=== PATIENT | male | born 1975 | race Caucasian/White ===

== ENCOUNTER 2019-01-13 20:17 | Outpatient (REF) | payer MEDICAID, SELFPAY ==
[2019-01-13 19:25] LABS: Anion Gap 10.5 mmol/L (3-11); BUN 8 mg/dL (7-18); CO2 27.5 mmol/L (21.0-32.0); CREATININE 0.88 mg/dL (0.70-1.30); Calcium 9.6 mg/dL (8.5-10.1); Calculated LDL 162 mg/dL; Chloride 101 mmol/L (98-107); Cholesterol 257 mg/dL (50-200); Glucose 97 mg/dL (70-100); HDL Cholesterol 77 mg/dL (40-60); Potassium 4.8 mmol/L (3.5-5.1); Sodium 139 mmol/L (136-145); Triglyceride 92 mg/dL (30-150)
== END 2019-01-13 20:37 ==
LOC: NCHCN 20:17
PROVIDERS: Visit Provider Nurse Practitioner Family
DX: I10 Essential (primary) hypertension (principal); Z00.00 Encounter for general adult medical examination without abnormal findings
CPT/HCPCS: 80048; 80061

== ENCOUNTER 2019-05-23 01:31 | Outpatient (CLI) | payer OTHER, MEDICAID, SELFPAY ==
--- NOTE | 2019-05-23 | DI.RAD_ITS ---
EXAM: XR CERVICAL SP NAPIER TRAUMA 2-3V INDICATION: PHOTO ID VERIFIED, SPINAL CORD LESIONS, SEVERAL SEVERE CONCUSSIONS. COMPARISON: No exams were available for comparison TECHNIQUE: 2D digital imaging was performed. FINDINGS: There is been previous laminectomies from C3 through C5. Hardware is noted posteriorly at these leve ls. There are advanced degenerative disc changes at see 5 6 and C6-7 as well as facet degenerative c hanges at C 2 3. The alignment appears normal. There is no prevertebral soft tissue swelling. IMPRESSION: Degenerative and postsurgical changes. DATA REPOSITORY: RADIATION DOSE DELIVERED:
== END 2019-05-23 01:51 ==
PROVIDERS: PCP Nurse Practitioner Family; Visit Provider Pediatrics Pediatric Rheumatology
DX: M50.322 Other cervical disc degeneration at C5-C6 level (principal); M50.323 Other cervical disc degeneration at C6-C7 level; Z98.890 Other specified postprocedural states
CPT/HCPCS: 72040

== ENCOUNTER 2020-03-20 22:44 | Outpatient (REF) | payer MEDICAID, SELFPAY ==
[2020-03-20 18:19] LABS: Calculated LDL 151 mg/dL (<100); Cholesterol 253 mg/dL (<200); HDL Cholesterol 80 mg/dL (40-60); TSH (W/Ref FT4) 8.26 uIU/mL (0.36-3.74); Triglyceride 114 mg/dL (<150)
[2020-03-20 18:36] LABS: FREE T4 1.46 ng/dL (0.76-1.46)
== END 2020-03-20 23:04 ==
LOC: NCHCN 22:44
PROVIDERS: PCP Nurse Practitioner Family; Visit Provider Nurse Practitioner Family
DX: E78.5 Hyperlipidemia, unspecified (principal); J39.2 Other diseases of pharynx; Z83.49 Family history of other endocrine, nutritional and metabolic diseases
CPT/HCPCS: 80061; 84439; 84443

== ENCOUNTER 2020-06-23 19:37 | Emergency (ER) | payer MEDICAID, SELFPAY ==
[2020-06-23 19:41] VITALS: BP 179/120; PULSE 112; RESP 20; TEMP 36.7; O2SAT 98
--- NOTE | 2020-06-23 20:00 | DI.CT_ITS ---
EXAM: CT ABDOMEN PELVIS W CLINICAL HISTORY: left lower quadrant pain x4 days TECHNIQUE: COMPARISON: No exams were available for comparison FINDINGS: CT examination of the abdomen and pelvis was performed with bolus infusion of 100 cc of Omnipaque 350 . Images obtained through the lung bases are unremarkable. Note is made of hepatic steatosis. No focal hepatic lesion seen. Spleen is unremarkable in appearance.. Gallbladder and bile ducts are unremarkable. Pancreas is unremarkable in appearance. Adrenals appear normal bilaterally. Kidneys appear normal with no evidence of solid renal mass, hydronephrosis, or nephrolithiasis. Ther e is presumed tiny left renal cortical cyst. There is no evidence of abdominal or pelvic adenopathy. Abdominal aorta is of normal diameter and no major vascular abnormality is seen. Appendix is normal. No evidence diverticulitis or bowel obstruction. No significant abdominal wall hernia seen. Impression: Hepatic steatosis. Otherwise unremarkable CT examination of the abdomen and pelvis. RADIATION DOSE DELIVERED: 926.43mGy.cm Total DLP 926.43mGy.cm Total DLP DATA REPOSITORY: All CT scans at this facility are submitted to the National Radiology Data Registry (NRDR) Dose Index Registry (DIR) with the [employer] ([employer]). RADIATION OPTIMIZATION: All CT scans at this facility use at least one of these dose optimization te chniques: automated exposure control; mA and/or kV adjustment per patient size (includes targeted exa ms where dose is matched to clinical indication); or iterative reconstruction.
--- NOTE | 2020-06-23 20:04 | ED.GENADUL_ITS ---
Discharge Plan Disposition Patient Disposition: HOME Discharge Details Clinical Impression: Abdominal pain Primary Care Provider: Danielle Barrett ED Provider: Silvana Morales Home Meds and New Rx's Prescriptions: New dicyclomine 10 mg capsule 10 mg PO BID Qty: 10 RF: 0 Discharge Instructions Instructions: Abdominal Pain (ED) Additional Instructions: Take ibuprofen 600 mg every 8 hours with food as needed for pain You may take Tylenol 650 mg every 4-6 hours as needed for breakthrough pain You may take Bentyl as needed for persistent pain, this medication can cause minor constipation so use caution while taking You are dehydrated on your blood work, please try to drink a cup of water every hour or 2 while you are awake Please return with worsening pain, fever, chills, or with any new or progressing symptoms Blood pressure recheck by primary care physician follow-up with your doctor regarding your ct findings of inflammation in your colon and cyst on kidney Discharge Data Discharge Date/Time-TO BE ENTERED AT DEPARTURE: 06/23/20 22:45 Medical Decision Making Patient appears well, have evidence of fatty liver and renal cortical cyst, his creatinine is mildly elevated at 1.4, he has a slight gap but is declining any IV fluid hydration is able to drink without difficulty He will follow up with his doctor regarding mildly elevated LFTs No evidence of acute pathology on CT findings radiology interpretation of my review Afebrile nontoxic Male tachycardia, patient states he has whitecoat syndrome . He is afebrile and otherwise nontoxic, is instructed to follow-up with primary care physician on Thursday for reevaluation return earlier should he have new or worsening complaints Urinalysis does not show evidence of infection CT findings suggest possible colitis, patient does not have any associated diarrhea Differential Diagnosis Differential Diagnosis: Diverticulitis, urinary tract infection, gastroenteritis, colitis Medical Records Medical records reviewed: Yes I reviewed the patient's medical records. Lab Data Lab results reviewed: Yes I reviewed the patient's lab results. HPI This 45-year-old male presents with report of abdominal pain for the past 4 days. He denies fever or chills. Denies prior history of similar pain in the past. Pain is worse when he ambulates. He denies any urinary complaints. He denies any change in bowel or bladder. He denies any blood in his stool. He denies any associated nausea or vomiting. General Date/Time Provider Initiated Documentation: 06/23/20 19:39 . Related Data Home Medications Medication Instructions Recorded Confirmed dicyclomine 10 mg PO BID #10 cap 06/23/20 Previous Rx's Medication Instructions Recorded dicyclomine 10 mg PO BID #10 cap 06/23/20 General Stated Complaint: Abd Prob PATRIA: 3 Review of Systems Narrative: Review of systems obtained from where indicated in HPI All systems reviewed & are unremarkable except as noted in HPI and below PFSH Social History Smoking/Tobacco Use Status: Former Tobacco Use Smoking risk assessment performed?: Yes Alcohol Intake: current Alcohol Intake frequency: a few times a week Drug use: Daily Substance use type: marijuana Do you feel safe at home: Yes Do you feel safe in your relationship?: Yes Exam Const General: cooperative, healthy appearing, comfortable and no acute distress Other: Appears anxious HENMT Other: Moist mucous membranes Resp Effort & Inspection: normal respiratory effort Cardio Rate: regular rate GI Other: No abdominal bruit or pulsatile mass, left lower quadrant abdominal tenderness No rebound or guarding, no CVA tenderness Ventral hernia, soft, no evidence of incarcerated hernia Skin General skin exam: no rashes or lesions noted Neuro General: patient alert and patient oriented x3 Course Vital Signs Vital signs: Vital Signs Temperature 36.7 C 06/23/20 19:41 Pulse 112 H 06/23/20 19:41 Respiratory Rate 20 06/23/20 19:41 Blood Pressure 179/120 H 06/23/20 19:41 Pulse Oximetry 98 06/23/20 19:41 Temperature 36.7 C 06/23/20 19:41 Temperature Source Temporal Artery Scan 06/23/20 19:41 Pulse 112 H 06/23/20 19:41 Respiratory Rate 20 06/23/20 19:41 Respiratory Effort Non-Labored 06/23/20 19:44 Blood Pressure 179/120 H 06/23/20 19:41 Pulse Oximetry 98 06/23/20 19:41 Oxygen Delivery Method Room Air 06/23/20 19:41 Oxygen Flow Rate 0 06/23/20 19:41 Pain Level 8 06/23/20 19:41
[2020-06-23 20:17] LABS: Abs Immature Grans 0.02 10^3/uL (0.0-0.06); Absolute Basophil Count 0.08 10^3/uL (0.0-0.2); Absolute Lymphocyte Count 2.94 10^3/uL (1.2-3.4); Absolute Monocyte Count 0.68 10^3/uL (0.1-0.8); Absolute Neutrophil Count 4.99 10^3/uL (1.2-6.7); Basophils % 0.9; Eosinophils % 3.3; HCT 43.3 % (40.0-50.0); HGB 14.3 g/dL (13.5-17.5); Immature Grans % 0.2; Lymphocytes % 32.6; MCH 31.2 pg (27.0-33.0); MCV 94.5 fL (80-95); MPV 10.1 fL (8.0-11.0); Monocytes % 7.5; Neutrophils % 55.5; Nucleated RBC 0 %; Platelet Count 310 10^3/uL (130-400); RBC 4.58 10^6/uL (4.36-5.78); RDW 12.2 % (11.8-14.1); RDW-SD 42.2 fL; WBC 9.01 10^3/uL (4.4-10.8)
[2020-06-23 20:30] LABS: ALT 97 U/L (16-63); AST 77 U/L (15-37); Albumin 4.2 g/dL (3.4-5.0); Alkaline Phosphatase 63 U/L (46-116); Anion Gap 12.7 mmol/L (3-11); BUN 11 mg/dL (7-18); Bilirubin, Total 0.6 mg/dL (0.2-1.0); CO2 27.3 mmol/L (21.0-32.0); CREATININE 1.4 mg/dL (0.70-1.30); Calcium 9.2 mg/dL (8.5-10.1); Chloride 99 mmol/L (98-107); Glucose 113 mg/dL (74-106); Potassium 3.9 mmol/L (3.5-5.1); Sodium 139 mmol/L (136-145)
[2020-06-23] MEDS: Normal Saline - Diluent 50 ML VIAL IV (20:50)
[2020-06-23] MEDS: Omnipaque 350 MG/ML 100 ML BTL IJ (20:50)
[2020-06-23 21:10] LABS: Lipase 183 U/L (73-393)
--- NOTE | 2020-06-23 21:40 | DI.VRAD_ITS ---
PROCEDURE INFORMATION: Exam: CT Abdomen And Pelvis With Contrast Exam date and time: 06/23/2020 8:46 PM Age: 45 years old Clinical indication: Abdominal pain TECHNIQUE: Imaging protocol: Computed tomography of the abdomen and pelvis with contrast. COMPARISON: No relevant prior studies available. FINDINGS: Liver: Diffuse hypoattenuation of the liver, consistent with steatosis. Gallbladder and bile ducts: Contracted gallbladder. No cholelithiasis or pericholecystic fluid. Pancreas: Normal. No ductal dilation. Spleen: Normal. No splenomegaly. Adrenal glands: Normal. No mass. Kidneys and ureters: 7 mm left renal upper pole cortical hypodensity, too small to characterize, likely a benign cyst. Stomach and bowel: Mild diffuse mural thickening of the colon, which may be due to under distention. No small bowel dilatation. Stomach is unremarkable. Appendix: Normal appendix. Intraperitoneal space: No significant pericolonic fat stranding. No intraperitoneal free fluid or free air. Vasculature: Minimal calcified atherosclerotic disease. No aneurysm. Lymph nodes: Unremarkable. No enlarged lymph nodes. Urinary bladder: Unremarkable as visualized. Reproductive: Unremarkable as visualized. Bones/joints: Moderate pectus excavatum deformity of the anterior chest wall. Soft tissues: Unremarkable. IMPRESSION: 1. Mild diffuse mural thickening of the colon, possibly colitis, although this finding may be due to under distension. 2. Sub cm left renal upper pole hypodense lesion, likely a benign cyst. No further imaging required. 3. Hepatic steatosis. Dictated and Authenticated by: Rivas Guerra MD. Ordering:ORLIN Pina MD
[2020-06-23 22:25] VITALS: BP 117/88; PULSE 100; O2SAT 97
[2020-06-23 22:26] VITALS: BP 117/88; PULSE 100; RESP 20; TEMP 36.7; O2SAT 97
[2020-06-23 22:29] LABS: Bilirubin Negative (Negative); Blood Negative (Negative); Clarity Clear (Clear); Glucose Negative (Negative); Ketones Trace mg/dL (Negative); Leukocyte Esterase Negative (Negative); Nitrite Negative (Negative); Specific Gravity <= 1.005 (1.005-1.025); Urobilinogen 0.2 EU/dL (Up TO 0.2); pH 5.5 (5-8)
== END 2020-06-23 22:45 | disposition home or self-care (01) ==
PROVIDERS: Emergency Provider Physician Assistant; PCP Nurse Practitioner Family
DX: R10.32 Left lower quadrant pain (principal); E86.0 Dehydration; R74.01 Elevation of levels of liver transaminase levels; R94.4 Abnormal results of kidney function studies; K76.0 Fatty (change of) liver, not elsewhere classified
CPT/HCPCS: 36415; 80053; 83690; 99285; 74177; 81003; 85025; 99284; J3490

== ENCOUNTER 2020-06-29 15:08 | Emergency (ER) | payer MEDICAID, SELFPAY ==
[2020-06-29 15:15] VITALS: PULSE 100; RESP 16; TEMP 36.7; O2SAT 96
--- NOTE | 2020-06-29 15:19 | ED.GENADUL_ITS ---
Discharge Plan Disposition Patient Disposition: HOME Condition: Stable Discharge Details Clinical Impression: Tinea cruris Primary Care Provider: Danielle Barrett ED Provider: Carmella Gonzalez Home Meds and New Rx's Prescriptions: New clotrimazole 1 % cream 1 applic topical BID 5 Days Qty: 15 RF: 0 No Action dicyclomine 10 mg capsule 10 mg PO BID Qty: 10 RF: 0 fluticasone propionate 50 mcg/actuation spray,suspension 50 mcg INTRANASAL DAILY RF: 0 Discharge Instructions Instructions: Jock Itch (ED) Additional Instructions: Wear loose fitting boxers, try baby powder keep area dry. Mild antibacterial soap. Decreased moisture possible. Use antifungal cream as directed twice daily for 3 to 5 days as needed for symptoms. Do not use longer than 7 days. Follow up with primary care provider in 3-5 days. Return to ED sooner if any worsening or concerns. Increase oral fluids. Referrals: Danielle Barrett [Primary Care Provider] - Medical Decision Making 45-year-old male presents to the ER with complaint of left groin rash. He denies any pruritus or burning. He denies any testicular swelling or problems urinating. Denies any nausea vomiting diarrhea no fever no other complaints at this time. He does report some intermittent sharp pains to his left hip. He was seen proximally 1 week ago for abdominal pain was prescribed dicyclomine at that time. At this time rash appears to be fungal in nature does have a smaller similar rash on the right groin. Differential diagnosis includes contact dermatitis, atopic dermatitis, Candidasis, psoriasis Patient prescribed clotrimazole 1% topical cream instructed to use baby powder and loosefitting clothing discussed strict return instructions, verbalized und erstanding. HPI General Mode of arrival: ambulatory . Date/Time Provider Initiated Documentation: 06/29/20 15:09 . Limitations to Documentation: no limitations . Information obtained by: patient . HPI Narrative: 45-year-old male presents to the ER with complaint of left groin rash. He denies any pruritus or burning. He denies any testicular swelling or problems urinating. Denies any nausea vomiting diarrhea no fever no other complaints at this time. He does report some intermittent sharp pains to his left hip. He was seen proximally 1 week ago for abdominal pain was prescribed dicyclomine at that time. Related Data Home Medications Medication Instructions Recorded Confirmed dicyclomine 10 mg PO BID #10 cap 06/23/20 clotrimazole 1 applic TOPICAL BID 5 Days #15 g 06/29/20 fluticasone propionate 50 mcg INTRANASAL DAILY 06/29/20 06/29/20 Previous Rx's Medication Instructions Recorded dicyclomine 10 mg PO BID #10 cap 06/23/20 clotrimazole 1 applic TOPICAL BID 5 Days #15 g 06/29/20 Allergies Allergy/AdvReac Type Severity Reaction Status Date / Time peanut Allergy Wheezing Unverified 06/29/20 15:20 codeine AdvReac Nausea Unverified 06/29/20 15:20 General Stated Complaint: RashLesion PATRIA: 4 Review of Systems All systems reviewed & are unremarkable except as noted in HPI and below Integumentary/Breasts Skin/Breast: Reports erythema and Reports rash PFSH Social History Smoking/Tobacco Use Status: Former Tobacco Use Smoking risk assessment performed?: Yes Alcohol Intake: current Alcohol Intake frequency: holidays/special occasions only Drug use: Daily Substance use type: marijuana Do you feel safe at home: Yes Do you feel safe in your relationship?: Yes Exam Narrative Exam Narrative: Constitutional: Alert and oriented x3. Appears stated age. Normal body habitus. Head: Normocephalic, no trauma. Chest: RRR, Normal S1, S2, distal pulses intact. Resp: Lungs clear to auscultation bilaterally, no wheezes, rales, or rhonchi. Musculoskeletal: Normal gait, 5/5 strength to all four extremities. Skin: Has a well demarcated erythemic area noted to left groin and mild rash to right groin as well. See diagram below. Capillary refill less than 2 sec. Extrem Upper/lower leg/hip images: 1. Well demarcated erythemic area, appears fungal in nature. 2. Mild erythema Course Vital Signs Vital signs: Vital Signs Temperature 36.7 C 06/29/20 15:15 Pulse 100 H 06/29/20 15:15 Respiratory Rate 16 06/29/20 15:15 Pulse Oximetry 96 06/29/20 15:15 Temperature 36.7 C 06/29/20 15:15 Temperature Source Tympanic 06/29/20 15:15 Pulse 100 H 06/29/20 15:15 Respiratory Rate 16 06/29/20 15:15 Respiratory Effort Non-Labored 06/29/20 15:15 Blood Pressure Position Sitting 06/29/20 15:15 Pulse Oximetry 96 06/29/20 15:15 Oxygen Delivery Method Room Air 06/29/20 15:15 Oxygen Flow Rate 0 06/29/20 15:15 Pain Level 2 06/29/20 15:15
[2020-06-29 15:36] VITALS: BP 126/74; PULSE 100; RESP 16; TEMP 36.7; O2SAT 96
== END 2020-06-29 15:40 | disposition home or self-care (01) ==
PROVIDERS: Emergency Provider Registered Nurse Emergency; PCP Nurse Practitioner Family
DX: B35.6 Tinea cruris (principal)
CPT/HCPCS: 99283

== ENCOUNTER 2020-10-23 02:41 | Outpatient (CLI) | payer MEDICAID, SELFPAY ==
--- NOTE | 2020-10-23 | DI.US_ITS ---
Exam(s) US SCROTUM EXAM: US SCROTUM CLINICAL HISTORY: LT TESTICULAR PAIN, N50.812 TECHNIQUE: Scrotal ultrasound was performed utilizing scanning with high-frequency transducer. COMPARISON: No exams were available for comparison FINDINGS: The testes are normal in size and shape and are normal in echotexture. There is normal vascular flow of the testes on Doppler evaluation and flow is symmetrical. No testicular mass identified. The epididymi are unremarkable in appearance with normal vascular flow. There is no evidence of a varicocele. There is a small left hydrocele. IMPRESSION: Small left hydrocele. Otherwise unremarkable scrotal ultrasound. RADIATION DOSE DELIVERED:
== END 2020-10-23 03:01 ==
PROVIDERS: PCP Nurse Practitioner Family; Visit Provider Nurse Practitioner Family
DX: N43.3 Hydrocele, unspecified; N50.812 Left testicular pain
CPT/HCPCS: 76870

== ENCOUNTER 2020-10-29 15:53 | Outpatient (REF) | payer MEDICAID, SELFPAY ==
[2020-10-29 15:41] LABS: Hemoglobin A1C 5.4 % (<5.7)
[2020-10-29 15:48] LABS: ALT 39 U/L (16-63); AST 29 U/L (15-37); Alkaline Phosphatase 67 U/L (46-116); Bilirubin, Direct 0.1 mg/dL (0.0-0.2); Bilirubin, Total 0.4 mg/dL (0.2-1.0); C-Reactive Protein 0.72 mg/dL (0.0-0.3); Total Protein 7.2 g/dL (6.4-8.2)
[2020-10-29 16:06] LABS: FREE T4 1.38 ng/dL (0.76-1.46)
[2020-10-29 16:14] LABS: GGT 144 U/L (15-85)
== END 2020-10-29 15:54 | disposition home or self-care (01) ==
LOC: LBN 15:53
PROVIDERS: PCP Nurse Practitioner Family; Visit Provider Surgery
DX: E78.89 Other lipoprotein metabolism disorders (principal); K76.0 Fatty (change of) liver, not elsewhere classified; R10.9 Unspecified abdominal pain; R19.8 Other specified symptoms and signs involving the digestive system and abdomen; N43.3 Hydrocele, unspecified; R79.89 Other specified abnormal findings of blood chemistry; Z83.49 Family history of other endocrine, nutritional and metabolic diseases
CPT/HCPCS: 80076; 82977; 83036; 84439; 84443; 86140

== ENCOUNTER 2021-12-09 18:14 | Outpatient (REF) | payer MEDICAID, SELFPAY ==
[2021-12-09 17:21] LABS: Anion Gap 7.9 mmol/L (3-11); BUN 10 mg/dL (7-18); CO2 31.1 mmol/L (21.0-32.0); CREATININE 0.9 mg/dL (0.70-1.30); Calcium 10.4 mg/dL (8.5-10.1); Chloride 101 mmol/L (98-107); Estimated GFR 106.67 (mL/min/1.73m2); Glucose 112 mg/dL (74-106); Potassium 5.1 mmol/L (3.5-5.1); Sodium 140 mmol/L (136-145); TSH (W/Ref FT4) 3.55 uIU/mL (0.36-3.74)
== END 2021-12-09 18:15 | disposition home or self-care (01) ==
LOC: NCHCN 18:14
PROVIDERS: PCP Nurse Practitioner Family; Visit Provider Nurse Practitioner Family
DX: R94.6 Abnormal results of thyroid function studies (principal); J39.2 Other diseases of pharynx; R10.30 Lower abdominal pain, unspecified
CPT/HCPCS: 80048; 84443

== ENCOUNTER 2022-08-08 10:24 | Emergency (ER) | payer MEDICAID, SELFPAY ==
[2022-08-08 10:28] VITALS: BP 177/86; PULSE 89; RESP 16; TEMP 37.1; O2SAT 100
--- NOTE | 2022-08-08 10:44 | ED.GENADUL_ITS ---
Discharge Plan Disposition Patient Disposition: Home Condition: Stable Discharge Details Clinical Impression: Tick bite, Wound infection Primary Care Provider: Danielle Barrett ED Provider: Barbara Wright Home Meds and New Rx's Prescriptions: New doxycycline hyclate 100 mg tablet 100 mg PO BID 14 Days Qty: 28 0RF Continued acetaminophen [Tylenol] 325 mg tablet 325 mg PO ONCE PRN fexofenadine [Margoth Allergy] 180 mg tablet 180 mg PO DAILY aspirin 325 mg tablet 650 mg PO PRN PRN fluticasone propionate 50 mcg/actuation spray,suspension 2 spray INTRANASAL DAILY Qty: 48 4RF Discharge Instructions Instructions: Wound Infection (ED), Tick Bite (ED) Additional Instructions: It is suspected that the area around your tick bite is bruised secondary to tick removal and may be coming secondarily infected secondary to scratching. A prescription for antibiotics has been sent electronically to your pharmacy to take as directed until finished. This can protect against a skin infection in addition to prophylaxis for possible Lyme disease. You have been placed on care management's list to arrange for a follow-up appointment with your primary care doctor within the next week for reevaluation. Return immediately to the emergency department if you develop any worsening or new concerning symptoms. Discharge Data Discharge Date/Time-TO BE ENTERED AT DEPARTURE: 08/08/22 13:23 Discharge Physician: Barbara Wright Medical Decision Making 47-year-old male presents with concern for skin infection at the site of a tick bite that he removed 4 days ago. Patient has a 1 x 1 cm erosion with 1 to 2 mm of surrounding ecchymosis and 2 cm of surrounding erythema noted to the left lateral thigh. There is no obvious bull's-eye rash. There is no concerning cellulitis or lymphangitis. He appears nontoxic. Discussed with patient that I suspect the ecchymosis is secondary to the traumatic hematoma from removing the tick and from scratching the area. Discussed that he may be developing a superficial skin infection but does not appear overwhelmingly consistent with erythema migrans at this time. To cover for potentially developing cellulitis and potential erythema migrans, will cover with doxycycline. He was given 1 dose here and a prescription sent electronically to his pharmacy. He states his tetanus is up-to-date. We will place patient on care management list to arrange for follow-up appoint with his primary care doctor's office for reevaluation. Usual and customary return p recautions given prior to discharge. Medical Records Medical records reviewed: Yes I reviewed the patient's medical records. HPI General Mode of arrival: ambulatory . Date/Time Provider Initiated Documentation: 08/08/22 10:43 . Limitations to Documentation: no limitations . Information obtained by: patient . HPI Narrative: Patient is a 47-year-old male who presents with concern for possible infection at the site of a tick bite on his left thigh. Patient states he noted the tick 4 days ago and thinks it may have been there for 12-24 hours. He states the tick was quite small and could have been consistent with a deer tick. He does not think it was engorged. He states he was able to remove it entirely with his fingers including the head. He states since then he has noted some bruising and redness around the site. He states there is no significant pain. He denies any known fever, bull's-eye rash, nausea, vomiting. He states his tetanus is up-to-date. Related Data Home Medications Medication Instructions Recorded Confirmed acetaminophen 325 mg tablet 325 mg PO ONCE PRN 10/29/20 08/08/22 (Tylenol) aspirin 325 mg tablet 650 mg PO PRN PRN 10/29/20 08/08/22 fexofenadine 180 mg tablet 180 mg PO DAILY 10/29/20 08/08/22 (Margoth Allergy) fluticasone propionate 50 2 spray intranasal DAILY #48 grams 11/11/21 08/08/22 mcg/actuation nasal spray,suspension doxycycline hyclate 100 mg tablet 100 mg PO BID 14 days #28 tabs 08/08/22 Previous Rx's Medication Instructions Recorded fluticasone propionate 50 2 spray intranasal DAILY #48 grams 11/11/21 mcg/actuation nasal spray,suspension doxycycline hyclate 100 mg tablet 100 mg PO BID 14 days #28 tabs 08/08/22 Allergies Allergy/AdvReac Type Severity Reaction Status Date / Time mold Allergy Intermediate post nasal Verified 08/08/22 10:31 drip, sinus issues peanut Allergy Wheezing Unverified 08/08/22 10:31 codeine AdvReac Nausea Unverified 08/08/22 10:31 General Stated Complaint: InsectBite PATRIA: 4 Review of Systems All systems reviewed & are unremarkable except as noted in HPI and below Constitutional Constitutional: Reports as per HPI, Denies chills and Denies fever(s) Eyes Eyes: Denies blurry vision ENT Ears, Nose, Mouth, and Throat: Denies dizziness, Denies sore throat and Denies throat swelling Cardiovascular Cardiovascular: Denies chest pain and Denies dyspnea Respiratory Respiratory: Denies cough and Denies dyspnea Gastrointestinal Gastrointestinal: Denies abdominal pain, Denies diarrhea and Denies vomiting Genitourinary Genitourinary: Denies hematuria and Denies dysuria Musculoskeletal Musculoskeletal: Denies back pain and Denies numbness Integumentary/Breasts Skin/Breast: Reports lesions and Reports rash Neurologic Neurologic: Denies dizziness, Denies localized weakness and Denies numbness Allergic/Immunologic Allergic/Immunologic: Denies throat swelling PFSH All Active Problems (Updated 08/08/22 @ 13:11 by Barbara Wright DO) Tick bite (Acute) Wound infection (Acute) Elevated TSH (Acute) Loose stools (Acute) Hydrocele (Acute) Fatty liver (Acute) Steatosis (Acute) Abdominal pain (Acute) Chronic allergic rhinitis (Acute) Tinea cruris (Acute) Medical History (Updated 08/08/22 @ 13:11 by Barbara Wright DO) Asthma, mild intermittent Change in bowel movement Dental caries Family history of thyroid disease Hip pain Hyperlipidemia Hypertension Seasonal allergies Sinus disorder Spinal cord lesion Testicular pain, left Throat irritation Social History Smoking/Tobacco Use Status: Former Tobacco Use Quit Date: 07/21/22 Tobacco: How many years used: 20 Smoking risk assessment performed?: Yes Alcohol Intake: current Alcohol Intake frequency: holidays/special occasions only Drug use: Daily Substance use type: marijuana Do you feel safe at home: Yes Do you feel safe in your relationship?: Yes Exam Const General: cooperative, healthy appearing and no acute distress HENMT Head: normal to inspection Mouth: oral mucosae normal Eyes General: appearance normal, both eyes and all related structures Neck Neck: normal visual inspection Resp Effort & Inspection: normal respiratory effort and able to speak in complete sentences Cardio Rate: regular rate Skin General skin exam: no rashes or lesions noted Neuro General: patient alert, patient awake and patient oriented x3 Motor: muscle tone normal throughout Extrem Upper/lower leg/hip images: 1. There is a 1 x 1 cm erosion/open wound with a 1 to 2 mm area of purple ecchymosis followed by a 2 cm area of faint erythema surrounding the area of ecchymosis. There is no significant tenderness to palpation. There is no bleeding or pus drainage. There is no significant induration or fluctuance. Psych Appearance: grossly normal Affect: normal affect Course Vital Signs Vital signs: Vital Signs Temperature 98.7 F 08/08/22 10:28 Pulse 89 08/08/22 10:28 Respiratory Rate 16 08/08/22 10:28 Blood Pressure 177/86 H 08/08/22 10:28 Pulse Oximetry 100 08/08/22 10:28 Temperature 98.7 F 08/08/22 10:28 Temperature Source Tympanic 08/08/22 10:28 Pulse 89 08/08/22 10:28 Respiratory Rate 16 08/08/22 10:28 Blood Pressure 177/86 H 08/08/22 10:28 Blood Pressure Position Sitting 08/08/22 10:28 Pulse Oximetry 100 08/08/22 10:28 Oxygen Delivery Method Room Air 08/08/22 10:28 Oxygen Flow Rate 0 08/08/22 10:28 Pain Level 2 08/08/22 10:28 PAWSS Have you Been Recently Intoxicated or Drunk Within the Last 30 days?: No Have you Ever Experienced Previous Episodes of Alcohol Withdrawal?: No Have you ever Experienced Withdrawal Seizures?: No Have you ever Experienced Delirium Tremens(DT)s?: No Have you ever undergone Alcohol Rehabilitation Treatment (i.e, inpt ot outpatient treatment programs)?: No Have you ever Experienced Blackouts?: No Have you ever Combined Alcohol with other Downers within the last 90 days?: No Evidence of Increased Autonomic Activity (i.e. HR>120, tremor, sweating, agitation, nausea)?: No Result: 0
[2022-08-08 11:57] VITALS: BP 153/94; PULSE 67; TEMP 36.6; O2SAT 98
[2022-08-08] MEDS: Doxycycline Hyclate 100 MG CAP PO (13:01)
--- NOTE | 2022-08-08 13:11 | NUR.NOTE ---
Nursing Note: PT needs PCP follow up within the next two weeks for reevaluation of tick bite. JuliaED
== END 2022-08-08 13:23 | disposition home or self-care (01) ==
PROVIDERS: Emergency Provider Physician Assistant; PCP Nurse Practitioner Family
DX: S70.362A Insect bite (nonvenomous), left thigh, initial encounter (principal); W57.XXXA Bitten or stung by nonvenomous insect and other nonvenomous arthropods, initial encounter; L53.9 Erythematous condition, unspecified
CPT/HCPCS: 99283

== ENCOUNTER 2024-03-20 12:51 | Emergency (ER) | payer MEDICAID, SELFPAY ==
[2024-03-20 12:54] VITALS: BP 197/90; PULSE 74; RESP 16; TEMP 36.9; O2SAT 100
--- NOTE | 2024-03-20 13:58 | ED.GENADUL_ITS ---
Discharge Plan Disposition Patient Disposition: Home Condition: Stable Discharge Details Clinical Impression: Pharyngitis Primary Care Provider: AMADOU FRANCES ED Provider: Cecilia Sherman Home Meds and New Rx's Prescriptions: No Action acetaminophen [Tylenol] 325 mg tablet 325 mg PO ONCE PRN fexofenadine [Margoth Allergy] 180 mg tablet 180 mg PO DAILY aspirin 325 mg tablet 650 mg PO PRN PRN fluticasone propionate 50 mcg/actuation spray,suspension 2 spray INTRANASAL DAILY Qty: 48 4RF Discharge Instructions Instructions: Sore Throat, Adult ED Additional Instructions: You were seen in the emergency department today for evaluation of sore throat. In our department he had a full physical examination performed, and had a negative strep test. As we discussed, steroid such as dexamethasone can help reduce inflammation and symptoms for the first 24 to 48 hours, though certainly this does not shorten the course of the disease and you may notice that your sore throat returns after 1 to 2 days. If this happens, please continue to use [id number] medications such as cough drops, Tylenol and ibuprofen, and continue to use tea with honey and lemon. You need to follow up with your primary care provider in the next few days to discuss this visit and any symptoms that change, worsen, or persist. If you develop a fever that does not get better with medications, inability to swallow or breathe, or any other symptoms that cause you significant concern you should return to the emergency department for reevaluation. Thank you for allowing us to be part of your care. HPI General Mode of arrival: ambulatory . Date/Time Provider Initiated Documentation: 03/20/24 13:42 . Limitations to Documentation: no limitations . Information obtained by: patient and old records reviewed . HPI Narrative: HPI: This is a 49-year-old male patient without significant past medical history who is presenting for evaluation of a sore throat. The patient reports that his sore throat started yesterday, and has worsened over the course of today, despite drinking tea with lemon in it. He reports that he has not had any fevers, associated runny nose or sneezing, and has not had any cough or shortness of breath. He states that he was prompted to seek care because when he bent his neck forward he felt like his throat was swollen and it felt constricting. The patient has not had any sick contacts, has been maintaining his hydration, and has otherwise been in his normal state of health. He has not had any chronic pharyngitis issues and still has his tonsils. Exam: Gen: Awake and alert, in no apparent distress HEENT: Non-icteric sclera, PERRL, no rhinorrhea. Posterior pharynx with very mild erythema but no exudates, swelling or asymmetry. The patient has generally poor dentition without evidence of infection Neck: Supple, full range of motion without meningismus or difficulty extending the neck, no tender lymphadenopathy palpable, thyroid mobile and without palpable nodules Lungs: No apparent respiratory distress, normal respiratory effort. Lung sounds clear and equal bilaterally without wheezes, rhonchi, rales CV: Appears well perfused, strong distal pulses, regular rate and rhythm Abdomen: Non-distended MSK: Moves 4 extremities without apparent limitation in ROM Skin: Visualized skin without rashes, cyanosis. Neuro: Normal Gait, no obvious focal deficits or facial asymmetry. Speaks in full, clear sentences. Psych: Appropriate for situation. MDM: This is a 49-year-old male patient presenting for evaluation of sore throat. My differential includes but is not limited to strep pharyngitis, viral pharyngitis, certainly considered more severe etiologies such as retropharyngeal abscess, [employer], though this is less consistent with my history and physical examination. The patient has no comorbid symptoms to suggest viral URI, pneumonia, bronchitis. He is maintaining his hydration and I have a low concern for metabolic or electrolyte derangement or dehydration. ED Course: Strep test was negative making viral pharyngitis the most likely etiology of his symptoms. The patient is requesting something for swelling and pain, for which she was provided with a single dose of p.o. Decadron, 10 mg, and counseled on the potential for rebound symptoms. He has primary care provider with whom he will follow-up was counseled on [id number] management of sore throats. At this time, the patient has had a full medical evaluation and is safe for discharge to home. They are hemodynamically stable, ambulatory, and tolerating PO. They are understanding of the follow-up plan and return precautions. They left our facility without incident. Cecilia Sherman MD Related Data Home Medications ?Medication ?Instructions ?Recorded ?Confirmed acetaminophen 325 mg tablet 325 mg PO ONCE PRN 10/29/20 03/20/24 (Tylenol) aspirin 325 mg tablet 650 mg PO PRN PRN 10/29/20 03/20/24 fexofenadine 180 mg tablet 180 mg PO DAILY 10/29/20 03/20/24 (Margoth Allergy) fluticasone propionate 50 2 spray intranasal DAILY #48 grams 11/11/21 03/20/24 mcg/actuation nasal spray,suspension Previous Rx's ?Medication ?Instructions ?Recorded fluticasone propionate 50 2 spray intranasal DAILY #48 grams 11/11/21 mcg/actuation nasal spray,suspension Allergies Allergy/AdvReac Type Severity Reaction Status Date / Time mold Allergy Intermediate post nasal Verified 03/20/24 12:56 drip, sinus issues peanut Allergy Wheezing Unverified 03/20/24 12:56 codeine AdvReac Nausea Unverified 03/20/24 12:56 General Stated Complaint: Sorethroat PATRIA: 4 Course Vital Signs Vital signs: Vital Signs Temperature 36.9 C 03/20/24 12:54 Pulse 74 03/20/24 12:54 Respiratory Rate 16 03/20/24 12:54 Blood Pressure 197/90 H 03/20/24 12:54 Pulse Oximetry 100 03/20/24 12:54 Temperature 36.9 C 03/20/24 12:54 Pulse 74 03/20/24 12:54 Respiratory Rate 16 03/20/24 12:54 Blood Pressure 197/90 H 03/20/24 12:54 Pulse Oximetry 100 03/20/24 12:54 Pain Level 4 03/20/24 12:54 Lab/Test Results Lab/Test Results: 03/20/24 12:28 Tonsil - Not Specified Group A Streptococcus Culture - Pending POC Strep Test-VINNY(Rapid) Start: 03/20/24 12:59 Freq: .Rapid Strep Test Status: Active Protocol: Document 03/20/24 13:22 GINA (Rec: 03/20/24 13:22 GINA [id number]) Strep test-VINNY(Rapid)-POC POC-Strep test-VINNY (Rapid) Negative POC-Strep test-VINNY (Rapid) Negative Medical Decision Making Quality:SDOH Health Related Social Needs: No Data to Display PFSH All Active Problems (Updated 03/20/24 @ 13:59 by Cecilia Sherman MD) Pharyngitis (Acute) Elevated TSH (Acute) Loose stools (Acute) Hydrocele (Acute) Fatty liver (Acute) Steatosis (Acute) Abdominal pain (Acute) Chronic allergic rhinitis (Acute) Tinea cruris (Acute) Medical History (Updated 03/20/24 @ 13:59 by Cecilia Sherman MD) Hypertension Spinal cord lesion Seasonal allergies Asthma, mild intermittent Hyperlipidemia Dental caries Throat irritation Family history of thyroid disease Sinus disorder Change in bowel movement Testicular pain, left Hip pain Social History Smoking/Tobacco Use Status: Former Tobacco Use Quit Date: 07/21/22 Tobacco: How many years used: 20 Smoking risk assessment performed?: Yes Alcohol Intake: current Alcohol Intake frequency: holidays/special occasions only Drug use: Daily Substance use type: marijuana Do you feel safe at home: Yes Do you feel safe in your relationship?: Yes
[2024-03-20] MEDS: Dexamethasone 10 MG/ML VIAL PO (14:06)
[2024-03-20 14:10] VITALS: BP 197/90; PULSE 74; RESP 16; TEMP 36.9; O2SAT 100
== END 2024-03-20 14:16 | disposition home or self-care (01) ==
PROVIDERS: Emergency Provider Emergency Medicine; PCP Nurse Practitioner Family
DX: J02.9 Acute pharyngitis, unspecified (principal)
CPT/HCPCS: 87880; 99283; 87081; J1100